=== PATIENT | male | born 1980 | race Caucasian/White ===

== ENCOUNTER 2018-03-05 14:08 | Emergency (ER) | payer BC ==
--- NOTE | 2018-03-05 14:40 | EDPHYS ---
Physician Documentation [facility] Name: Aston Ken Age: 37 yrs Sex: Male : 1980 Arrival Date: 03/05/2018 Time: 14:11 Bed 25 Private MD: ED Physician Jemal Galarza HPI: 03/05 14:30 This 37 yrs old Male presents to ER via Ambulatory with complaints of rn Toothache. 14:30 The patient presents with broken tooth/teeth, pain, redness, swelling. Onset: The rn symptoms/episode began/occurred at an unknown time. Duration: The symptoms are intermittent. Modifying factors: The symptoms are alleviated by nothing, the symptoms are aggravated by air, chewing. Severity of symptoms: At their worst the symptoms were moderate, in the emergency department the symptoms are unchanged. The patient has experienced similar episodes in the past. REports has had multiple tooth infections and abscesses, reports yesterday his left upper teeth started hurting again, no swelling no fever, no drainage, called his dentist and they are closed for the holidays. . Historical: - Allergies: 14:19 No Known Allergies; hj - Home Meds: 14:19 None [Active]; hj - PMHx: 14:19 None; hj - PSHx: 14:19 None; hj - Immunization history:: Adult Immunizations up to date. - Social history:: Smoking status: Patient uses tobacco products, Patient/guardian denies using alcohol. - Ebola Screening: : Patient negative for fever greater than or equal to 101.5 degrees Fahrenheit, and additional compatible Ebola Virus Disease symptoms Patient denies exposure to infectious person Patient denies travel to an Ebola-affected area in the 21 days before illness onset. - Family history:: not pertinent. - Hospitalizations: : No recent hospitalization is reported. ROS: 14:30 Constitutional: Negative for fever, chills, and weight loss, ENT: + dental pain Neuro: rn Negative for headache, weakness, numbness, tingling, and seizure. Exam: 14:30 Constitutional: This is a well developed, well nourished patient who is awake, alert, rn and in no acute distress. Head/Face: Normocephalic, atraumatic. No fluctuance or swelling involving buccal space. ENT: Poor dentition without obvious abscess/swelling, pain located to teeth #9/#10/#11 Vital Signs: 14:20 BP 138 / 87; Pulse 65; Resp 18; Temp 97.0(TE); Pulse Ox 99% on R/A; Weight 111.13 kg; hj Height 5 ft. 7 in. (170.18 cm); Pain 7/10; 14:20 Body Mass Index 38.37 (111.13 kg, 170.18 cm) MDM: 14:21 Patient medically screened. rn 14:30 Differential diagnosis: dental caries, dental abscess. Data reviewed: vital signs, rn nurses notes, and as a result, I will discharge patient. Counseling: I had a detailed discussion with the patient and/or guardian regarding: the historical points, exam findings, and any diagnostic results supporting the discharge/admit diagnosis, the need for outpatient follow up, to return to the emergency department if symptoms worsen or persist or if there are any questions or concerns that arise at home. Special discussion: I discussed with the patient/guardian in detail that at this point there is no indication for admission to the hospital. It is understood, however, that if the symptoms persist or worsen the patient needs to return immediately for re-evaluation. Based on the history and exam findings, there is no indication for further emergent testing or inpatient evaluation. I discussed with the patient/guardian the need to see a dentist for further evaluation of the symptoms. Administered Medications: No medications were administered Disposition: 03/05/18 14:40 Discharged to Home. Impression: Dental caries. - Condition is Stable. - Discharge Instructions: Dental Pain. - Prescriptions for Amoxicillin 875 mg Oral Tablet - take 1 tablet by ORAL route every 12 hours for 10 days; 20 tablet. Ultram 50 mg Oral Tablet - take 1 tablet by ORAL route every 6 hours As needed; 15 tablet. - Medication Reconciliation Form, Thank You Letter, Antibiotic Education, Prescription Opioid Use form. - Follow up: Private Physician; When: As needed; Reason: Recheck today's complaints, Re-evaluation by your physician. - Problem is new. - Symptoms have improved. Signatures: Jemal Galarza MD MD rn Joaquin, Henry, RN RN hj Lowrey, Tammy, RN RN tl3 Corrections: (The following items were deleted from the chart) 14:45 14:40 03/05/2018 14:40 Discharged to Home. Impression: Dental caries. Condition is tl3 Stable. Forms are Medication Reconciliation Form, Thank You Letter, Antibiotic Education, Prescription Opioid Use. Follow up: Private Physician; When: As needed; Reason: Recheck today's complaints, Re-evaluation by your physician. Problem is new. Symptoms have improved. rn
--- NOTE | 2018-03-05 14:40 | ER ---
Nurse's Notes [facility] Name: Aston Ken Age: 37 yrs Sex: Male : 1980 Arrival Date: 03/05/2018 Time: 14:11 Bed 25 Private MD: Diagnosis: Dental caries Presentation: 03/05 14:18 Presenting complaint: Patient states: i have a severe abscessed tooth on my L upper hj tooth, started last night;. Transition of care: patient was not received from another setting of care. Onset of symptoms was March 05, 2018. Risk Assessment: Do you want to hurt yourself or someone else? Patient reports no desire to harm self or others. Initial Sepsis Screen: Does the patient meet any 2 criteria? No. Patient's initial sepsis screen is negative. Does the patient have a suspected source of infection? No. Patient's initial sepsis screen is negative. Care prior to arrival: None. 14:18 Method Of Arrival: Ambulatory 14:18 Acuity: NANCY 4 hj Triage Assessment: 14:19 General: Appears in no apparent distress. uncomfortable, Behavior is calm, cooperative, hj appropriate for age. Pain: Complains of pain in tooth Pain currently is 7 out of 10 on a pain scale. EENT: Reports pain in L upper tooth. Historical: - Allergies: 14:19 No Known Allergies; hj - Home Meds: 14:19 None [Active]; hj - PMHx: 14:19 None; hj - PSHx: 14:19 None; hj - Immunization history:: Adult Immunizations up to date. - Social history:: Smoking status: Patient uses tobacco products, Patient/guardian denies using alcohol. - Ebola Screening: : Patient negative for fever greater than or equal to 101.5 degrees Fahrenheit, and additional compatible Ebola Virus Disease symptoms Patient denies exposure to infectious person Patient denies travel to an Ebola-affected area in the 21 days before illness onset. - Family history:: not pertinent. - Hospitalizations: : No recent hospitalization is reported. Screenin:20 Abuse screen: Denies threats or abuse. Denies injuries from another. Nutritional hj screening: No deficits noted. Tuberculosis screening: No symptoms or risk factors identified. Fall Risk None identified. Assessment: 14:25 General: Appears uncomfortable, well groomed, well developed, well nourished, Behavior tl3 is calm, cooperative, appropriate for age. Pain: Complains of pain in upper left cuspid Pain currently is 10 out of 10 on a pain scale. Neuro: Level of Consciousness is awake, alert, obeys commands, Oriented to person, place, time, situation, Appropriate for age. Cardiovascular: Patient's skin is warm and dry. Respiratory: Airway is patent Respiratory effort is even, unlabored, Respiratory pattern is regular, symmetrical. GI: No deficits noted. No signs and/or symptoms were reported involving the gastrointestinal system. : No deficits noted. No signs and/or symptoms were reported regarding the genitourinary system. EENT: No deficits noted. No signs and/or symptoms were reported regarding the EENT system. Derm: No deficits noted. No signs and/or symptoms reported regarding the dermatologic system. Musculoskeletal: No deficits noted. No signs and/or symptoms reported regarding the musculoskeletal system. Vital Signs: 14:20 BP 138 / 87; Pulse 65; Resp 18; Temp 97.0(TE); Pulse Ox 99% on R/A; Weight 111.13 kg; hj Height 5 ft. 7 in. (170.18 cm); Pain 7/10; 14:20 Body Mass Index 38.37 (111.13 kg, 170.18 cm) hj ED Course: 14:11 Patient arrived in ED. hj 14:19 Triage completed. hj 14:20 Arm band placed on left wrist. hj 14:20 Patient has correct armband on for positive identification. Bed in low position. Call hj light in reach. Side rails up X 1. Adult w/ patient. 14:21 Jemal Galarza MD is Attending Physician. rn 14:24 Mari Joyner, CLAIRE is Primary Nurse. tl3 14:25 ED physician to see patient. Dr Galarza at bedside. tl3 14:25 No provider procedures requiring assistance completed. Patient did not have IV access tl3 during this emergency room visit. Administered Medications: No medications were administered Outcome: 14:40 Discharge ordered by . rn 14:45 Patient left the ED. tl3 14:45 Discharged to home ambulatory. tl3 14:45 Condition: stable 14:45 Discharge instructions given to patient, family, Instructed on discharge instructions, follow up and referral plans. medication usage, Demonstrated understanding of instructions, follow-up care, medications, Prescriptions given X 2. Signatures: Jemal Galarza MD MD rn Joaquin, Henry, RN RN Mari Joyner RN RN tl3 Corrections: (The following items were deleted from the chart) 14:21 14:20 Pulse 65bpm; Resp 18bpm; Pulse Ox 99% RA; Temp 97.0F Temporal; 111.13 kg; Height hj 5 ft. 7 in.; BMI: 38.3; Pain 7/10; hj 14:22 14:20 Pulse 65bpm; Resp 18bpm; Pulse Ox 99% RA; Temp 97.0F Temporal; 111.13 kg; Height hj 5 ft. 7 in.; BMI: 38.3; Pain 7/10; hj
== END 2018-03-05 14:45 | disposition home or self-care (01) ==
LOC: ER 14:08
DX: K02.9 Dental caries, unspecified (principal); Z72.0 Tobacco use
CPT/HCPCS: 99282

== ENCOUNTER → 2023-03-13 | Emergency (ER) | payer SELFPAY ==
--- NOTE | 2023-03-13 23:39 | ER ---
Nurse's Notes [facility] Name: Aston Ken Age: 42 yrs Sex: Male : 1980 Arrival Date: 03/13/2023 Time: 23:14 Bed IW5 Private MD: Diagnosis: Rash and other nonspecific skin eruption Presentation: 03/13 23:33 Chief complaint: Patient states: change in color and size of a skin tag below right km8 axilla; denies trauma to site or fever/chills. Coronavirus screen: Client denies travel out of the [place] in the last 14 days. Ebola Screen: No symptoms or risks identified at this time. Initial Sepsis Screen: Does the patient meet any 2 criteria? No. Patient's initial sepsis screen is negative. Does the patient have a suspected source of infection? No. Patient's initial sepsis screen is negative. Risk Assessment: Do you want to hurt yourself or someone else? Patient reports no desire to harm self or others. Onset of symptoms. 23:33 Method Of Arrival: Ambulatory [facility] 23:33 Acuity: NANCY 4 km8 Triage Assessment: 23:35 General: Appears in no apparent distress. comfortable, Behavior is calm, cooperative, km8 appropriate for age. Pain: Complains of pain in right axilla Pain currently is 2 out of 10 on a pain scale. EENT: No signs and/or symptoms were reported regarding the EENT system. Neuro: Level of Consciousness is awake, alert, obeys commands, Oriented to person, place, time, situation. Cardiovascular: Capillary refill < 3 seconds Patient's skin is warm and dry. Respiratory: Airway is patent Respiratory effort is even, unlabored, Respiratory pattern is regular, symmetrical. GI: No signs and/or symptoms were reported involving the gastrointestinal system. : No signs and/or symptoms were reported regarding the genitourinary system. Derm: Skin is intact, Skin is dry, Skin is pink, warm \T\ dry. normal, Skin temperature is warm skin tag to right axilla. Musculoskeletal: No signs and/or symptoms reported regarding the musculoskeletal system. Range of motion: intact in all extremities. Historical: - Allergies: 23:35 No Known Allergies; km8 - Home Meds: 23:35 None [Active]; km8 - PMHx: 23:35 None; km8 - PSHx: 23:35 dental; km8 - Immunization history:: Client reports having NOT received the Covid vaccine. Flu vaccine is not up to date. - Social history:: Smoking status: Reported history of juuling and/or vaping. Patient/guardian denies using alcohol, street drugs. Screenin:43 [facility] ED Fall Risk Assessment (Adult) History of falling in the last 3 months, km8 including since admission No falls in past 3 months (0 pts) Confusion or Disorientation No (0 pts) Intoxicated or Sedated No (0 pts) Impaired Gait No (0 pts) Mobility Assist Device Used No (0 pt) Altered Elimination No (0 pt) Score/Fall Risk Level 0 - 2 = Low Risk Oriented to surroundings, Maintained a safe environment, Educated pt \T\ family on fall prevention, incl call for assistance when getting out of bed, Assessed \T\ reinforced patient's understanding of fall precautions. Abuse screen: Denies threats or abuse. Denies injuries from another. Nutritional screening: No deficits noted. Tuberculosis screening: No symptoms or risk factors identified. Assessment: 23:43 General: see triage assessment. km8 Vital Signs: 23:33 BP 129 / 81; Pulse 73; Resp 16; Temp 97.3(IR); Pulse Ox 100% on R/A; Weight 119.29 kg km8 (R); Height 5 ft. 7 in. (R); Pain 2/10; 23:33 Body Mass Index 41.19 (119.29 kg, 170.18 cm) km8 23:33 Pain Scale: Adult km8 ED Course: 23:17 Patient arrived in ED. [id number] 23:32 Katarzyna Bland, MENG-[place] is PHCP. kb 23:32 Jamil Regalado MD is Attending Physician. kb 23:35 Triage completed. km8 23:35 Arm band placed on right wrist. km8 23:43 Patient has correct armband on for positive identification. Provided Education on: d/c km8 teaching. 23:43 No provider procedures requiring assistance completed. Patient did not have IV access km8 during this emergency room visit. Administered Medications: No medications were administered Medication: 23:43 VIS not applicable for this client. km8 Outcome: 23:38 Discharge ordered by . kb 23:43 Discharged to home ambulatory, with significant other, km8 23:43 Condition: good 23:43 Discharge instructions given to patient, significant other, Instructed on discharge instructions, follow up and referral plans. Demonstrated understanding of instructions, follow-up care, 23:44 Patient left the ED. km8 Signatures: Katarzyna Bland, MANAGER COMPENSATION-C MANAGER COMPENSATION-Ckb Maddy Woods [email or web address] Adriana Hayes RN RN km8
--- NOTE | 2023-03-13 23:39 | EDPHYS ---
Physician Documentation [facility] Name: Aston Ken Age: 42 yrs Sex: Male : 1980 Arrival Date: 03/13/2023 Time: 23:14 Bed IW5 Private MD: ED Physician Jamil Regalado HPI: 03/13 23:50 This 42 yrs old Male presents to ER via Ambulatory with complaints of Pt would like kb "ruptured skin tag checked". 23:50 Pt reports he has a skin tag in his right axilla that has been there for years, but it kb has gotten bigger and darker . Historical: - Allergies: 23:35 No Known Allergies; km8 - Home Meds: 23:35 None [Active]; km8 - PMHx: 23:35 None; km8 - PSHx: 23:35 dental; km8 - Immunization history:: Client reports having NOT received the Covid vaccine. Flu vaccine is not up to date. - Social history:: Smoking status: Reported history of juuling and/or vaping. Patient/guardian denies using alcohol, street drugs. ROS: 23:48 Constitutional: Negative for fever, chills, and weight loss, kb 23:48 Skin: Positive for of the right axilla, skin tag, 23:48 All other systems are negative, Exam: 23:48 Constitutional: This is a well developed, well nourished patient who is awake, alert, kb and in no acute distress. Head/Face: Normocephalic, atraumatic. ENT: Moist Mucous membranes Respiratory: Respirations even and unlabored. No increased work of breathing. Talking in full sentences MS/ Extremity: Pulses equal, no cyanosis. Neurovascular intact. Full, normal range of motion. Neuro: Awake and alert, GCS 15, oriented to person, place, time, and situation. Moves all extremities. Normal gait. 23:48 Skin: skin tag to right axilla. Vital Signs: 23:33 BP 129 / 81; Pulse 73; Resp 16; Temp 97.3(IR); Pulse Ox 100% on R/A; Weight 119.29 kg km8 (R); Height 5 ft. 7 in. (R); Pain 2/10; 23:33 Body Mass Index 41.19 (119.29 kg, 170.18 cm) 8 23:33 Pain Scale: Adult km8 MDM: 23:32 Patient medically screened. kb 23:48 Differential diagnosis: skin tag, mole, cancerous lesion. Data reviewed: vital signs, kb nurses notes. 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 Administered Medications: No medications were administered Disposition Summary: 03/13/23 23:38 Discharge Ordered Notes: Location: Home kb Condition: Stable kb Diagnosis - Rash and other nonspecific skin eruption kb Followup: kb - With: Emergency Department - When: As needed - Reason: Worsening of condition Followup: kb - With: Private Physician - When: 2 - 3 days - Reason: Recheck today's complaints, Continuance of care, Re-evaluation by your physician Discharge Instructions: - Discharge Summary Sheet kb - Skin Tag, Adult kb Forms: - Medication Reconciliation Form kb - Thank You Letter kb - Antibiotic Education kb - Prescription Opioid Use kb - Patient Portal Instructions kb - Leadership Thank You Letter kb Signatures: Katarzyna Bland, MENG-C RASPBERRY CHECKER-Adriana Zapata, RN RN km8
[2023-03-14 02:12] VITALS: BP 129/81; TEMP 97.3; O2SAT 100
== END ==
LOC: ER 23:14
DX: R21 Rash and other nonspecific skin eruption (principal)
CPT/HCPCS: 99282